=== PATIENT | male | born 1955 | race Caucasian/White ===

== ENCOUNTER → 2023-04-09 12:57 | Outpatient (CLI) | payer OTHER, SELFPAY ==
--- NOTE | 2023-04-09 | DI.US.S_ITS ---
PROCEDURE: US THYROID INDICATIONS: THYROID NODULE TECHNIQUE: Real-time scanning was performed of the thyroid gland, with image documentation. COMPARISON: None. FINDINGS: Right: Thyroid lobe measures 4.8 x 2.0 x 1.9 cm, and is homogeneous in echotexture. Left: Thyroid lobe measures 3.8 x 3.0 x 2.1 cm, and is homogenous in echotexture. Isthmus: 0.4 cm thick. Nodule number: 1 Location: Left midpole Size: 2.9 x 2.4 x 2.1 cm. Previously 2.2 x 2.2 x 2.1 cm. Composition: Solid Echogenicity: Hypoechoic Shape: wider than tall. Margins: Smooth Echogenic foci: None Total points: 4 ACR TI-RADS category: Moderate suspicion IMPRESSION: Slight interval growth of the ti-rads 4 left thyroid nodule. FNA is indicated, if not already performed. ACR TI-RADS definitions and recommendations: TI-RADS 1 (benign): 0 points. FNA not needed. TI-RADS 2 (not suspicious): 2 points. FNA not needed. TI-RADS 3 (mildly suspicious): 3 points. * FNA if 2.5 cm or larger, follow up if 1.5 cm or larger (at 1, 3, and 5 years). TI-RADS 4 (moderately suspicious): 4-6 points. * FNA if 1.5 cm or larger, follow up if 1 cm or larger (at 1, 2, 3, and 5 years). TI-RADS 5 (highly suspicious): 7 points or more. * FNA if 1 cm or larger, follow up if 0.5 cm or larger (every year for 5 years). Dictated by: tSef Newman M.D. on 04/09/2023 at 16:31 Approved by: Stef Newman M.D. on 04/09/2023 at 16:33
== END ==
PROVIDERS: PCP Internal Medicine; Referring Provider Internal Medicine; Visit Provider Internal Medicine
DX: Z01.89 Encounter for other specified special examinations (principal); E04.1 Nontoxic single thyroid nodule
CPT/HCPCS: 76536